=== PATIENT | male | born 1975 | race Two or more races ===

== ENCOUNTER 2018-11-08 00:07 | Observation (INO) | payer MEDICAID, OTHER ==
--- NOTE | 2018-11-08 00:20 | EDPHY ---
H & P Stated Complaint: LUQ abd pain, hurts to take deep breathe Time Seen by Provider: 11/08/18 00:20 HPI/ROS: HPI CHIEF COMPLAINT: Left-sided pleuritic pain. Pain with deep inspiration. HISTORY OF PRESENT ILLNESS: This is a 43-year-old male otherwise healthy denies any significant medical history does not take any daily medications he is Malawian-speaking only and a spring coiler was used for history review of systems and physical exam. He presents emergency room with left-sided sharp stabbing pain worse when he takes a deep breath in. He complains of his a sudden onset sharp stabbing pain when he takes deep breath in on the left lateral chest. He denies any trauma. Denies productive cough, denies fever. Denies chest pressure. He has never had this before. He states he was going to lay down when this started. Past Medical History: Denies significant medical history Past Surgical History: Appendectomy Social History: Denies drugs alcohol tobacco. Family History: Denies any significant family history of cardiovascular disease. ROS REVIEW OF SYSTEMS: 10 Systems were reviewed and negative with the exception of the elements mentioned in the history of present illness. Exam Constitutional triage nursing summary reviewed, vital signs reviewed, awake/ alert. Vital signs stable. Eyes normal conjunctivae and sclera, EOMI, PERRLA. HENT normal inspection, atraumatic, moist mucus membranes, no epistaxis, neck supple/ no meningismus, no raccoon eyes. Respiratory clear to auscultation bilaterally, normal breath sounds, no respiratory distress, no wheezing. Cardiovascular rate normal, regular rhythm, no murmur, no edema, distal pulses normal. Gastrointestinal soft, non-tender, no rebound, no guarding, normal bowel sounds, no distension, no pulsatile mass. Genitourinary no CVA tenderness. Musculoskeletal no midline vertebral tenderness, full range of motion, no calf swelling, no tenderness of extremities, no meningismus, good pulses, neurovascularly intact. Skin pink, warm, & dry, no rash, skin atraumatic. Neurologic awake, alert and oriented x 3, AAOx3, moves all 4 extremities equally, motor intact, sensory intact, CN II-XII intact, normal cerebellar, normal vision, normal speech. Psychiatric normal mood/affect. Heme/Lymph/Immune no lymphadenopathy. Differential Diagnosis: Differential diagnosis includes but is not limited to: ACS, atypical chest pain, pneumothorax, pneumonia, pulmonary embolism, aortic dissection, congestive heart failure, tumor, musculoskeletal pain, esophageal pain, GERD, peptic ulcer disease, pancreatitis Medical Decision Making: Plan for this patient IV establishment IV fluid bolus IV Toradol 15 mg for pain control, chest x-ray, EKG, troponin, youth nutritional monitor, D-dimer and re-evaluate. Re-evaluation: EKG interpretation by me on record in [employer] system. Impression time of EKG 0024, sinus rhythm rate of 68, no acute ischemia no ST elevation no ST depression no T-wave abnormalities. Troponin 0.00 D-dimer is negative. Chest x-ray one view reviewed by myself. Negative for acute cardiopulmonary disease. 0235: Patient re-evaluated this time does feel better after IV fluids and IV Toradol with trinh inspiration he still has pleuritic pain on that left side. Plan for this patient given ongoing severe sharp stabbing pain deep inspiration plan will be for CT angiogram of the chest rule out PE or other cause left- sided sharp stabbing pain CT angiogram of the chest performed due to left-sided ongoing pleuritic pain. This is faxed to me by direct radiology time 3:33 a.m. This is unremarkable CT angiogram of the chest for pulmonary embolism. No PE visualized. 5:17 a.m. patient resting comfortably without any complaints denies chest pain or shortness of breath. Patient presents emergency room left-sided sharp stabbing pleuritic pain specially when he takes deep breath in. No chest pressure no referred pain. Only had pain he took a deep breath in. spring coiler was used for history, review of systems and physical exam. The patient's troponin was 0.00 The patient D-dimer is negative Chest x-ray unremarkable The patient had a CT angiogram of the chest due to ongoing left-sided pleuritic pain which is unremarkable for pulmonary embolism or pneumothorax. The patient's EKG was sinus rhythm at 68 without any acute ischemia. I believe the left-sided pain which is sharp stabbing when takes deep breath in his pleurisy without pulmonary embolism. I do recommend anti-inflammatory pain medicine and rest. Additionally he understands return emergency room if develops worsening chest pain, shortness of breath, fever, cough, not doing well. This been discussed in length with the patient. spring coiler was used the all the patient's questions were answers. 0536: Patient reports to me his left-sided chest discomfort 11/16. Patient having a repeat EKG Repeat EKG time 5:24 a.m., sinus rhythm rate of [address] elevation lateral leads V4 V5 V6. I discussed with the patient his cardiac evaluation and workup. Plan will be for hospital admission today for further evaluation. Echocardiogram. Given his ongoing left-sided chest discomfort. spring coiler was used. Patient agrees for this. 0558: Discussed case with Dr. Funes. Recommends echocardiogram. Will review the patient's EKGs. Plan will be for admission. Echocardiogram. Hospitalist service to admit for ongoing chest pain. Wonder if this is pericarditis. Source: Patient - Personal History Current Tetanus Diphtheria and Acellular Pertussis (TDAP): No - Medical/Surgical History Hx Asthma: No Hx Chronic Respiratory Disease: No Hx Diabetes: No Hx Cardiac Disease: No Hx Renal Disease: No Hx Cirrhosis: No Hx Alcoholism: No Hx HIV/AIDS: No Hx Splenectomy or Spleen Trauma: No Other PMH: DENIES - Social History Smoking Status: Never smoked Constitutional: Initial Vital Signs Temperature (C) 36.8 C 11/08/18 00:13 Heart Rate 97 11/08/18 00:13 Respiratory Rate 18 11/08/18 00:13 Blood Pressure 125/79 H 11/08/18 00:13 O2 Sat (%) 97 11/08/18 00:13 O2 Delivery Mode Room Air Allergies/Adverse Reactions: No Known Allergies Allergy (Verified 11/08/18 00:15) Home Medications: Medication Instructions Recorded NK [No Known Home Meds] 11/08/18 Medical Decision Making - Data Points Laboratory Results: Laboratory Results 11/08/18 00:33 11/08/18 00:33 Medications Given: Discontinued Medications Aspirin (Aspirin) 325 mg PO EDNOW ONE Stop: 11/08/18 05:50 Last Admin: 11/08/18 06:04 Dose: 325 mg Sodium Chloride (Ns) 1,000 mls @ 0 mls/hr IV EDNOW ONE; Wide Open PRN Reason: Protocol Stop: 11/08/18 00:28 Last Admin: 11/08/18 00:32 Dose: 1,000 mls Ketorolac Tromethamine (Toradol) 15 mg IVP EDNOW ONE Stop: 11/08/18 01:55 Last Admin: 11/08/18 02:22 Dose: 15 mg Point of Care Test Results: Chemistry 11/08/18 11/08/18 05:35 00:39 POC Troponin I 0.00 ng/mL ng/mL 0.00 ng/mL ng/mL (0.00-0.08) (0.00-0.08) Departure - Departure Disposition: [facility] Inpatient Acute Clinical Impression: Pleurisy Chest pain Qualifiers: Chest pain type: unspecified Qualified Code(s): R07.9 - Chest pain, unspecified Condition: Good
[2018-11-08] MEDS ORDERED: NS 1,000 ML IV ONE (00:27)
[2018-11-08 01:00] LABS: INR 1.03 (0.83-1.16); PROTIME(PATIENT) 13.7 SEC (12.0-15.0)
[2018-11-08 01:01] LABS: PLATELET COUNT 228 10^3/uL (150-400)
[2018-11-08] MEDS ORDERED: KETOROLAC 15 MG/1 ML SDV IVP ONE (01:54)
[2018-11-08] MEDS ORDERED: IOPAMIDOL (ISOVUE 370) 100 ML BTL IV ONE (02:38)
[2018-11-08] MEDS ORDERED: ASPIRIN 325 MG TAB PO ONE (05:49)
[2018-11-08] MEDS ORDERED: LORazepam 0.5 MG TAB PO PRN (06:11)
[2018-11-08] MEDS ORDERED: ACETAMINOPHEN 325 MG TAB PO PRN (06:11)
[2018-11-08] MEDS ORDERED: ONDANSETRON 4 MG/2 ML VIAL IVP PRN (06:11)
[2018-11-08] MEDS ORDERED: HYDROCODONE/APAP 5/325 TAB PO PRN (06:11)
[2018-11-08] MEDS ORDERED: ONDANSETRON DISINTEGRATING 4 MG TAB PO PRN (06:11)
--- NOTE | 2018-11-08 06:19 | PDGENHP ---
History and Physical - Chief Complaint Chest pain - History of Present Illness Source-patient provides history appears reliable. Sudanese primary language but patient is conversant in Scottish as well. EMR was reviewed and case discussed with ED provider. HPI - is a very pleasant 43-year-old gentleman with no significant past medical history presents emergency department today with complaints of sudden onset of left pleuritic chest pain. Patient reports that he was getting ready for bed and was adjusting his pillow when he suddenly noticed that he had sharp 4/10 electrical type pain in his chest. Pain was worse with any kind of movement at the left or right. He also had increasing pain with inspiration and breath holding. Patient denies any chest pressure or palpitations. No associated shortness of breath. The patient denies any recent fevers chills illnesses rhinorrhea nausea vomiting. Patient does report approximately 2 weeks ago he was experiencing some intermittent flank pain he thought was related to his kidneys but denies any dysuria or hematuria. Patient family history negative for CAD. He reports that his father is 93 without any cardiac issues. Patient denies any orthopnea, PND, lower extremity edema. He denies any localized injury to his chest or abdomen. 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 Patient reports that he frequently goes up and down stairs without any chest pain. History Information - Allergies/Home Medication List Allergies/Adverse Reactions: No Known Allergies Allergy (Verified 11/08/18 00:15) I have personally reviewed and updated: family history, medical history, social history, surgical history - Past Medical History no pertinent PMH - Family History Negative for: CAD Additional family history: Father -93 and healthy. - Social History Smoking Status: Never smoked Alcohol Use: None Drug Use: None Additional social history: Patient is lives with his . Cor-full. Review of Systems Review of Systems: ROS: 10pt was reviewed & negative except for what was stated in HPI & below Constitutional: Reports: no symptoms EENMT: Reports: no symptoms Cardiac: Reports: chest pain. Denies: edema Respiratory: Reports: no symptoms Gastrointestinal: Reports: no symptoms Genitourinary: Reports: flank pain (Two weeks ago). Denies: dysuria, hematuria Muscolosketal: Reports: no symptoms Skin: Reports: no symptoms Neurological: Reports: no symptoms Hematologic/Lymphatic: Reports: no symptoms Physical Exam Physical Exam: Selected Entries 11/08/18 00:13 Blood Pressure Automatic Method Heart Rate 97 Respiratory 18 Rate O2 Sat (%) 97 Temperature (C) 36.8 C Blood Pressure 125/79 H Mean Arterial 94 Pressure (MAP) O2 Delivery Room Air Mode Temperature Oral Source Temp Pulse Resp BP Pulse Ox 36.8 C 56 L 18 117/67 96 11/08/18 06:02 11/08/18 06:02 11/08/18 06:02 11/08/18 06:02 11/08/18 06:02 Constitutional: no apparent distress, appears nourished, other (slightly overweight/obese) Eyes: PERRL, anicteric sclera, EOMI, No scleral injection Ears, Nose, Mouth, Throat: moist mucous membranes, other (No nasal discharge), No poor dentition Cardiovascular: regular rate and rhythym, pulses symmetric bilaterally, bradycardia (Fifty), No edema Peripheral Pulses: 2+: dorsalis-pedis (R), dorsalis-pedis (L) Respiratory: no respiratory distress, no rales or rhonchi, clear to auscultation , No respiratory distress Gastrointestinal: normoactive bowel sounds, soft, non-tender abdomen, no palpable masses, No distension Genitourinary: no bladder tenderness, other (No CVA tenderness), No bernstein in urethra Skin: warm, normal color, no rashes or abrasions Musculoskeletal: full muscle strength (Patient moves all extremities and sits up independently.) Neurologic: AAOx3, sensation intact bilaterally, No other (Grossly nonfocal exam.) Psychiatric: interacting appropriately, not anxious, not encephalopathic Lab Data & Imaging Review 11/08/18 00:33 11/08/18 00:33 WBC 8.06 10^3/uL (3.80-9.50) 11/08/18 00:33 RBC 5.17 10^6/uL (4.40-6.38) 11/08/18 00:33 Hgb 15.7 g/dL (13.7-17.5) 11/08/18 00:33 Hct 45.8 % (40.0-51.0) 11/08/18 00:33 MCV 88.6 fL (81.5-99.8) 11/08/18 00:33 MCH 30.4 pg (27.9-34.1) 11/08/18 00:33 MCHC 34.3 g/dL (32.4-36.7) 11/08/18 00:33 RDW 12.1 % (11.5-15.2) 11/08/18 00:33 Plt Count 228 10^3/uL (150-400) 11/08/18 00:33 MPV 9.4 fL (8.7-11.7) 11/08/18 00:33 Neut % (Auto) 49.2 % (39.3-74.2) 11/08/18 00:33 Lymph % (Auto) 42.1 % (15.0-45.0) 11/08/18 00:33 Pike % (Auto) 6.0 % (4.5-13.0) 11/08/18 00:33 Eos % (Auto) 2.0 % (0.6-7.6) 11/08/18 00:33 Baso % (Auto) 0.6 % (0.3-1.7) 11/08/18 00:33 Nucleat RBC Rel Count 0.0 % (0.0-0.2) 11/08/18 00:33 Absolute Neuts (auto) 3.97 10^3/uL (1.70-6.50) 11/08/18 00:33 Absolute Lymphs (auto) 3.39 10^3/uL (1.00-3.00) H 11/08/18 00:33 Absolute Monos (auto) 0.48 10^3/uL (0.30-0.80) 11/08/18 00:33 Absolute Eos (auto) 0.16 10^3/uL (0.03-0.40) 11/08/18 00:33 Absolute Basos (auto) 0.05 10^3/uL (0.02-0.10) 11/08/18 00:33 Absolute Nucleated RBC 0.00 10^3/uL (0-0.01) 11/08/18 00:33 Immature Gran % 0.1 % (0.0-1.1) 11/08/18 00:33 Immature Gran # 0.01 10^3/uL (0.00-0.10) 11/08/18 00:33 PT 13.7 SEC (12.0-15.0) 11/08/18 00:33 INR 1.03 (0.83-1.16) 11/08/18 00:33 APTT 28.4 SEC (23.0-38.0) 11/08/18 00:33 D-Dimer < 0.27 ug/mLFEU (0.00-0.50) 11/08/18 00:33 Sodium 141 mEq/L (135-145) 11/08/18 00:33 Potassium 4.0 mEq/L (3.5-5.2) 11/08/18 00:33 Chloride 109 mEq/L (97-110) 11/08/18 00:33 Carbon Dioxide 23 mEq/l (22-31) 11/08/18 00:33 Anion Gap 9 mEq/L (6-14) 11/08/18 00:33 BUN 22 mg/dL (7-23) 11/08/18 00:33 Creatinine 1.0 mg/dL (0.7-1.3) 11/08/18 00:33 Estimated GFR > 60 11/08/18 00:33 Glucose 100 mg/dL (70-100) 11/08/18 00:33 Calcium 9.0 mg/dL (8.5-10.4) 11/08/18 00:33 Total Bilirubin 0.8 mg/dL (0.1-1.4) 11/08/18 00:33 Conjugated Bilirubin 0.3 mg/dL (0.0-0.5) 11/08/18 00:33 Unconjugated Bilirubin 0.5 mg/dL (0.0-1.1) 11/08/18 00:33 AST 22 IU/L (17-59) 11/08/18 00:33 ALT 27 IU/L (21-72) 11/08/18 00:33 Alkaline Phosphatase 82 IU/L (38-126) 11/08/18 00:33 POC Troponin I 0.00 ng/mL (0.00-0.08) 11/08/18 05:35 NT-Pro-B Natriuret Pep 24 pg/mL (0-125) 11/08/18 00:33 Total Protein 7.1 g/dL (6.3-8.2) 11/08/18 00:33 Albumin 4.2 g/dL (3.5-5.0) 11/08/18 00:33 Lipase 177 IU/L (23-300) 11/08/18 00:33 Imaging Review: CT preliminary report image reviewed - negative for PE, pneumonia. cardiac assessment normal. partially calcified mediastinal LN noted (radiology called for clarification suspect error noting "known brain metastases") CXR - clear, no infiltrates. prominent pulmonary vasculature Visualized and Interpreted Chest x-ray results: Yes Chest X-Ray results: no infiltrate Visualized and Interpreted imaging results: Yes EKG additional interpertation: NSR 60s. Less than [address] elevations in 3 AVF and lateral leads. QTC 421. Repeat EKG was also reviewed and compared without significant changes. Assessment & Plan Assessment: Pleasant 43 yo healthy male who presents to the ED with sudden onset of pleuritic chest pain. Chest pain (Acute) - ddx including pericarditis vs less likely acs. HEART score [address] changes noted in multiple leads. no recent viral type illnesses. Patient received Toradol in the ED with improvement of his symptoms pain down from 4 to 1/10. cardiology consulted from ED with low suspicion for any acute coronary event. recommend echocardiogram which has been ordered. Serial troponins have been negative. Pain control p.r.n.. Check lipid panel. Pleurisy (Acute) -morphine, Leisenring, tylenol, Toradol p.r.n.. FEN - Diet as tolerated. electrolytes adequate. SLIV. PPX - SCDs. low risk dvt. anticipate short hospital stay. COR - FULL. Dispo - Patient admitted to PCU for observation pending above evaluations.
[2018-11-08 06:32] VITALS: BP 142/90
--- NOTE | 2018-11-08 09:52 | ASDISCHSUM ---
Discharge Information Plan Status:Home with No Needs Medically Cleared to Leave: Discharge Date: CM D/C Disposition:Home, Routine, Self-Care ADT D/C Disposition:Home, Routine, Self-Care Projected Discharge Date: Transportation at D/C:Family Discharge Delay Reason: Follow-Up Date: Discharge Slot: Final Diagnosis: Placement Information Patient Contact Information Contact Name:WILLIS Relationship: Address:[address] [place] [address] Work Phone: City:[facility] Phone: [facility]/Zip Code:[place] [address] Email: Financial Information Financial Class:Self-Pay Primary Plan Desc:SP UNINSURED Primary Plan Number:XXXX Secondary Plan Desc: Secondary Plan Number: Assessment Information LACE LACE Length of stay for Answers: Less than 1 day current admission Acuity / Level of Answers: No Care: Did the patient have an inpatient admission? # of Emergency department Answers: 1-2 visits in the last 6 months Score: 1 Date Signed: 11/08/2018 09:51 AM Electronically Signed By:Cheryl Albert Intervention Information
--- NOTE | 2018-11-08 12:51 | GDS ---
[f rep st] DISCHARGE SUMMARY DISCHARGE DIAGNOSES: 1. Atypical chest pain. 2. Hyperlipidemia. 3. Obesity. HISTORY OF PRESENT ILLNESS: A 43-year-old Bangladeshi-speaking male with obesity presents to the ER with sudden onset of left pleuritic chest pain. He was getting ready for bed and was adjusting his brian w when he noticed sharp, 4/10, electric-type pain in his chest. It was worse with any kind of moveme nt to the left or the right, also worse with deep inspiration. No shortness of breath, nausea, vomit ing, or numbness in his arm. He reported 2 weeks ago had some intermittent flank pain he thought was related to kidneys, but denies dysuria or hematuria. No family history of CAD. No fevers, chills, or sweats. 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 He frequen tly goes up and down the stairs without any chest pain. HOSPITAL COURSE: 1. Atypical chest pain. Suspect pericarditis with deep inspiration. HEART score was 1. Pain impro kristan with Toradol. Patient declined echocardiogram this morning. His troponins have been negative. He does have elevated cholesterol and I recommend a statin. However, he would like to start with exe rcise and diet which I counseled him on with a neurosurgery research director. He is to continue NSAIDs for azra n relief. CTA was negative for PE. 2. Obesity. Counseled on diet and exercise. DISPOSITION: Patient is stable for discharge. NEW MEDICATIONS: Advil 600 mg t.i.d. FOLLOWUP: With [facility]. If pain recurs, should follow up for possible cardiac stress testing . DIET: Low-fat diet and exercise. Time spent on discharge: Greater than 30 minutes reviewing records, bedside with patient, counseling on diet, exercise. /[id number]/MODL
--- NOTE | 2018-11-11 14:51 | CPEKG ---
Test Reason : OPEN Blood Pressure : / mmHG Vent. Rate : 068 BPM Atrial Rate : 065 BPM P-R Int : 141 ms QRS Dur : 085 ms QT Int : 395 ms P-R-T Axes : 055 079 061 degrees QTc Int : 421 ms Sinus rhythm Abnormal R-wave progression, early transition Confirmed by Zachary Escoto ([id number]) on 11/11/2018 2:51:24 PM Referred By: Britta Lebron Confirmed By:Zachary Escoto
== END 2018-11-08 10:22 | disposition home or self-care (01) ==
LOC: F2W 06:21
PROVIDERS: ADMIT Family Medicine; ATTEND Internal Medicine
DX: R07.9 Chest pain, unspecified (principal); E86.9 Volume depletion, unspecified; E78.5 Hyperlipidemia, unspecified; E66.9 Obesity, unspecified; Z68.27 Body mass index [BMI] 27.0-27.9, adult
CPT/HCPCS: 84484-ER; 96374; G0378; J1885; Q9967